=== PATIENT | female | born 1980 | race African-American/Black ===

== ENCOUNTER 2018-06-05 12:22 | Emergency (ER) | payer MEDICAID ==
[~2018-06-05] VITALS: Ht 172.7 cm; Wt 73.0 kg
[2018-06-05] MEDS ORDERED: METHOCARBAMOL 500MG TABLET PO ONE (14:30)
[2018-06-05] MEDS ORDERED: KETOROLAC 30MG/ML VIAL IM ONE (14:30)
[2018-06-05] MEDS ORDERED: HYDROCODONE/ACETAMINOPHEN 5/325MG TABLET PO ONE (16:15)
[2018-06-05 16:23] VITALS: BP 117/82
== END 2018-06-05 16:52 | disposition home or self-care (01) ==
LOC: ER 12:22
DX: S39.012A Strain of muscle, fascia and tendon of lower back, initial encounter (principal); M25.551 Pain in right hip; V49.50XA Passenger injured in collision with unspecified motor vehicles in traffic accident, initial encounter; Y93.89 Activity, other specified; Y92.410 Unspecified street and highway as the place of occurrence of the external cause
CPT/HCPCS: 72100; 73502; 81025; 96372; 99283; J1885

== ENCOUNTER 2022-03-20 08:24 | Inpatient (IN) | payer MEDICAID ==
[~2022-03-20] VITALS: Ht 167.6 cm; Wt 69.4 kg
[2022-03-20] MEDS ORDERED: SODIUM CHLORIDE 0.9% 1,000 ML IV ONE (09:15)
[2022-03-20 10:00] LABS: CHLORIDE 105 mEq/L (98-107)
[2022-03-20 10:03] LABS: BASOPHILS % 0.7 % (0.0-2.0); EOSINOPHILS % 1.2 % (0.0-5.0); HEMATOCRIT. 39.5 % (36.0-48.0); HEMOGLOBIN. 12.6 g/dL (12.0-16.0); LYMPHOCYTES % 20.3 % (20.0-50.0); MEAN CORPUSCULAR VOLUME 75.1 fL (81.0-99.0); MONOCYTES % 8.9 % (2.0-8.0); NEUTROPHILS % 68.9 % (40.0-76.0); PLATELET 256 x1000/uL (130-400); RED BLOOD CELL COUNT 5.26 mill/uL (4.2-5.4); RED CELL DISTRIBUTION WIDTH 16.5 % (11.6-14.6)
[2022-03-20 10:17] LABS: ETHANOL BLOOD < 10 mg/dL
[2022-03-20 10:59] LABS: CLARITY URINE CLOUDY (CLEAR); COLOR URINE YELLOW (YELLOW); KETONES URINE TRACE (NEGATIVE); LEUKOCYTE ESTERASE URINE 1+ (NEGATIVE); NITRITE URINE NEGATIVE (NEGATIVE); OCCULT BLOOD URINE NEGATIVE (NEGATIVE); PH URINE 5.5 (4.5-8.0); PROTEIN URINE 2+ (NEGATIVE); SPECIFIC GRAVITY URINE 1.019 (1.005-1.030)
[2022-03-20 12:05] LABS: *AMPHETAMINES SCREEN URINE NEGATIVE (NEGATIVE); *BARBITURATES SCREEN URINE NEGATIVE (NEGATIVE); *BENZODIAZEPINES SCREEN URINE NEGATIVE (NEGATIVE); *COCAINE SCREEN URINE NEGATIVE (NEGATIVE); METHADONE URINE SCREEN NEGATIVE (NEGATIVE); OPIATES URINE SCREEN NEGATIVE (NEGATIVE)
[2022-03-20 12:14] LABS: CANNABINOID URINE SCREEN PRESUMTIVE POSITIVE (NEGATIVE); PHENCYCLIDINE URINE SCREEN PRESUMTIVE POSITIVE (NEGATIVE)
[2022-03-20 22:50] VITALS: BP 130/110
[2022-03-21] MEDS ORDERED: ONDANSETRON HCL 4MG/2ML INJ IV PRN (01:00)
[2022-03-21] MEDS ORDERED: NALOXONE HCL 0.4MG/ML VIAL IV PRN (01:15)
[2022-03-21 04:00] VITALS: BP 110/70
[2022-03-21] MEDS: SODIUM CHLORIDE 0.9% 1,000 ML IV SCH ×2 (05:17→14:59)
[2022-03-21] MEDS ORDERED: HYDROCODONE/ACETAMINOPHEN 5/325MG TABLET PO PRN (07:00)
[2022-03-21 07:07] LABS: HEMATOCRIT 37.3 % (36.0-48.0); MEAN CORPUSCULAR HEMOGLOBIN 24.4 pg (28.0-32.0); MEAN CORPUSCULAR VOLUME 75.5 fL (81.0-99.0); PLATELET 233 x1000/uL (130-400); RED BLOOD CELL COUNT 4.94 mill/uL (4.2-5.4); RED CELL DISTRIBUTION WIDTH 16.7 % (11.6-14.6)
[2022-03-21 07:33] LABS: CHLORIDE 107 mEq/L (98-107)
[2022-03-21 08:00] VITALS: BP 146/96
[2022-03-21] MEDS ORDERED: FAMOTIDINE 20MG TABLET PO SCH (09:00)
[2022-03-21 11:41] VITALS: BP 138/95
[2022-03-21 15:11] VITALS: BP 141/95
== END 2022-03-21 16:15 | disposition home or self-care (01) | DRG 48 ==
LOC: ER 08:37 → 7WST 13:23
PROVIDERS: ADMIT Internal Medicine; ATTEND Internal Medicine
DX: G90.8 Other disorders of autonomic nervous system (principal); F25.9 Schizoaffective disorder, unspecified; F17.210 Nicotine dependence, cigarettes, uncomplicated; F12.90 Cannabis use, unspecified, uncomplicated; Z88.8 Allergy status to other drugs, medicaments and biological substances
CPT/HCPCS: 36415; 70551; 71045; 80053; 80305; 80320; 81003; 83735; 84484; 85025; 85027; 93005; 99285; J7030; G0480